=== PATIENT | male | born 1965 | race Caucasian/White ===

== ENCOUNTER 2017-12-30 00:02 | Inpatient (IN) | END 2018-01-03 15:30 | disposition home or self-care (01) | DRG 684 ==

== ENCOUNTER 2019-02-21 10:02 | Emergency (ER) | payer OTHER ==
[~2019-02-21] VITALS: Ht 160 cm; Wt 80.0 kg
[~2019-02-21 10:02] MED LIST: BUME1TAB PO; DOCU-216 PO; DOXA2TAB61 PO; HYDR-3671 PO; INSU100I12 SQ; ISOS30TA67 PO; METO-429 PO
[2019-02-21 10:07] VITALS: Ht 160 cm; Wt 80.0 kg
[2019-02-21] MEDS ORDERED: NICARDipine HCL 30 MG CAPSULE PO ONE (10:30)
--- NOTE | 2019-02-21 10:48 | ERD ---
ER Documentation Chief Complaint Chief Complaint HTN TOOK MEDS 1/2 HR AGO , SLIGHT WELLS NOW HPI Patient is a 53-year-old male with diabetes and hypertension who presents with high blood pressure. The patient's symptoms started 2 to 3 years ago. He has a little bit of a headache. He is taking his blood pressure medications. He had an appointment with his primary doctor yesterday. Upon review of old medical record the patient one previous visit to the ER in 2018. He supposedly was given a prescription for a new blood pressure medicine by his primary doctor but did not fill this prescription yet. ROS All systems reviewed and are negative except as per history of present illness. Medications Home Meds Active Scripts Docusate Sodium (Dok) 100 Mg Capsule, 100 MG PO BID, #60 CAP Prov:SMITH,[employer] 01/03/18 Bumetanide* (Bumetanide*) 1 Mg Tablet, 1 MG PO BID DIURETICS, #60 TAB Prov:SMITH,[employer] MA[employer]GER 01/03/18 Isosorbide Mononitrate* (Isosorbide Mononitrate*) 30 Mg Tab.er.24h, 30 MG PO DAILY, #30 TAB Prov:SMITH,[employer] MA[employer]GER 01/03/18 Hydralazine Hcl* (Hydralazine Hcl*) 25 Mg Tab, 25 MG PO TID, #90 TAB Prov:SMITH,[employer] MANAGER 01/03/18 Doxazosin Mesylate* (Cardura*) 2 Mg Tablet, 2 MG PO HS, #30 TAB Prov:SMITH,[employer] MA[employer] 01/03/18 Reported Medications Insulin Lispro (Humalog Kwikpen U-100) 100 Unit/1 Ml Insuln.pen, 100 UNIT SQ, EA 12/30/17 Metoprolol Tartrate* (Lopressor*) 50 Mg Tab, 50 MG PO BID, #60 TAB 12/30/17 Allergies Allergies: Coded Allergies: No Known Allergy (Unverified , 12/30/17) PMhx/Soc History of Surgery: No Anesthesia Reaction: No Hx Neurological Disorder: No Hx Respiratory Disorders: No Hx Cardiac Disorders: Yes (HTN) Hx Psychiatric Problems: No Hx Miscellaneous Medical Probl: No Hx Alcohol Use: No Hx Substance Use: No Hx Tobacco Use: No Smoking Status: Never smoker FmHx Family History: diabetes Physical Exam Vitals Vital Signs Date Temp Pulse Resp B/P (MAP) Pulse Ox O2 O2 Flow FiO2 Time Delivery Rate 02/21/19 98.1 63 18 123/60 99 Room Air 11:16 (81) 02/21/19 98.1 53 18 231/97 99 10:07 (141) Physical Exam Const: No acute distress Head: Atraumatic Eyes: Normal Conjunctiva ENT: Normal External Ears, Nose and Mouth. Neck: Full range of motion. No meningismus. Resp: Clear to auscultation bilaterally Cardio: Regular rate and rhythm, no murmurs Abd: Soft, non tender, non distended. Normal bowel sounds Skin: No petechiae or rashes Back: No midline or flank tenderness Ext: No cyanosis, or edema Neur: Awake and alert, cranial nerves II through XII are intact, strength is 5 out of 5 in all 4 extremities Psych: Normal Mood and Affect Results 24 hrs Current Medications Medications Dose Sig/Naomi Start Time Status Last (Trade) Ordered Route PRN Stop Time Admin Dose Reason Admin Nicardipine 30 mg ONCE ONCE 02/21/19 DC 02/21/19 HCl PO 10:30 10:36 (Cardene) 02/21/19 10:31 Procedures/MDM EKG read by me: Rate/Rhythm: Sinus bradycardia at a rate of 55 Intervals: Normal Impression: Bradycardia without ischemia Patient is a 53-year-old male with hypertension and diabetes who presents with high blood pressure. I doubt hypertensive emergency at this time. I doubt stroke, intracranial mass, or hemorrhage. Neurologic exam is normal. I do not believe the patient requires further work-up or inpatient admission at this time. However the patient will need close follow-up with his primary doctor within 24 to 48 hours for repeat blood pressure check. The patient was given Cardene by mouth in the emergency department. Departure Diagnosis: Primary Impression: Hypertension Hypertension type: essential hypertension Qualified Codes: I10 - Essential (primary) hypertension Condition: Fair Patient Instructions: High Blood Pressure (Hypertension) Referrals: Your doctor Additional Instructions: Llame al doctor yahaira navarro (Referral Sources) MAANA y poncho ru KAREN PARA DENTRO DE RU SEMANA. Dgale a la secretaria que nosotros le instruimos hacer esta karen.Avise o llame si barton condicin se empeora antes de la karen. MARILEE COHEN MD Feb 21, 2019 10:48
[2019-02-21 11:16] VITALS: BP 123/60; PULSE 63; RESP 18
== END 2019-02-21 11:51 | disposition home or self-care (01) ==
LOC: E/R 10:02
DX: I10 Essential (primary) hypertension (principal); E11.9 Type 2 diabetes mellitus without complications; Z79.4 Long term (current) use of insulin
CPT/HCPCS: 93005; Z7502; Z7610